=== PATIENT | female | born 1940 | race Caucasian/White ===

== ENCOUNTER → 2023-06-04 11:28 | Outpatient (REF) | payer OTHER, SELFPAY | LOC: DHCBC/DCA 11:28 | PROVIDERS: ATTENDING PHYSICIAN Internal Medicine Cardiovascular Disease; FAMILY PHYSICIAN Family Medicine | DX: I49.1 Atrial premature depolarization (principal); M79.602 Pain in left arm | CPT/HCPCS: 78452; 93017; A9500; J2785 ==

== ENCOUNTER → 2023-09-28 11:34 | Outpatient (REF) | payer OTHER, SELFPAY | LOC: RAD 11:34 | PROVIDERS: ATTENDING PHYSICIAN Family Medicine | DX: R91.1 Solitary pulmonary nodule (principal) | CPT/HCPCS: 71250 ==

== ENCOUNTER 2023-11-27 21:16 | Inpatient (IN) | payer OTHER, SELFPAY ==
[2023-11-27 15:42] VITALS: BP 168/86
--- NOTE | 2023-11-27 15:46 | ED.GENMED ---
ED Provider Triage
<Rosa Valderrama PA-C - Last Filed: 11/27/23 15:48>
-
Patient seen by provider in Triage?: Seen in Triage
Attestation: A medical screening examination has been initiated by a qualified medical provider. Based on the assessment performed at this time, it has been determined that an emergent medical condition may exist and the patient has been informed
that further medical evaluation and possible additional diagnostic testing may be needed.
HPI: 82yoF here with LLQ pain x 2 days. +Nausea, 1 episode of vomiting. Hx of kidney stones and this feels the same. Has underwent lithotripsy in the past. Follows with Dr. Nuñez.
GENERAL: Alert , in no apparent distress
EYE: No visual abnormalities.
NECK: Trachea midline
ENT: No visible abnormalities.
LUNGS: No acute respiratory distress
NEUROLOGICAL: Alert and oriented
SKIN: Skin intact. No visible changes.
MUSCULOSKELETAL: Moving extremities normally
PSYCH: Normal and appropriate interaction.
This is a medical evaluation conducted in person to initiate diagnostic evaluation and provide initial therapeutics. Please see further documentation by the treating clinician.
CBC, CMP, UA, and CT abdomen ordered. Zofran ODT for nausea.
History of Present Illness
<Rosa Valderrama PA-C - Last Filed: 11/27/23 15:48>
General
Chief Complaint: Flank Pain
Time Seen by Provider: 11/27/23 19:40
<Mariel Davila MD - Last Filed: 11/27/23 20:21>
History of Present Illness
History of Present Illness:
Patient is a 82-year-old woman with history of recurrent kidney stones and UTIs. Has had multiple lithotripsy, hypertension, hyperlipidemia presenting to the emergency department with left-sided flank pain that radiates to her groin. Has been
ongoing for 3 days. Seem similar to prior kidney stones. Has been having nausea. Is also generally felt unwell and weak. No vomiting. No fevers. No numbness tingling or weakness. No back pain
Phy Exam
<Mariel Davila MD - Last Filed: 11/27/23 20:21>
Physical Exam
Physical Exam:
GENERAL: in no acute distress
HEENT: normocephalic, extraocular movements intact, moist oral mucosa
NECK: normal inspection
RESPIRATORY: no respiratory distress, clear to auscultation bilaterally
CARDIOVASCULAR: regular rate and rhythm
ABDOMEN/: soft, non-distended, non-tender to palpation, no rebound or guarding
EXTREMITIES: non-tender, no edema/swelling
NEUROLOGIC: awake and alert, moves all extremities
SKIN: warm
Course
<Rosa Valderrama PA-C - Last Filed: 11/27/23 15:48>
Orders/Labs/Results
Orders:
Orders
11/27/23 15:47
Ondansetron Orally Disint [Zofran Odt (Orally Disintegrating)] 4 mg .ROUTE .STK-MED ONE
11/27/23 15:48
CT Abd/pel Without Iv Or Oral Urgent
Comment:
Reason For Exam: LLQ pain, hx of kidney stones
11/27/23 15:49
Ondansetron Orally Disint [Zofran Odt (Orally Disintegrating)] 4 mg PO NOW STA
11/27/23 15:51
Complete Blood Count/With Diff Urgent
Comprehensive Metabolic Panel Urgent
Lipase Urgent
11/27/23 15:55
Urinalysis Reflex To Culture Urgent
Date Specimen was Collected: 11/27/23
Time Specimen was Collected: 15:45
Urine Microscopic Reflex Cult Urgent
Urine Culture Urgent
MARIAH Source: U
Specimen Description:
Date Specimen was Collected: 11/27/23
Time Specimen was Collected: 15:45
11/27/23 20:16
Blood Culture Urgent
MARIAH Source: Blood/Venous
Specimen Description:
Cefepime HCl [Maxipime] 2,000 mg IV NOW STA
Abnormal Lab Results
11/27/23 11/27/23
15:51 15:55
WBC 22.2 H 10^3/uL
(4.8-10.8)
MPV 11.8 H fL
(7.4-10.4)
Abs Immat Gran (auto) 0.1 H 10^3/uL
(0-0.05)
Absolute Neuts (auto) 18.4 H 10^3/uL
(1.4-6.5)
Absolute Monos (auto) 1.6 H 10^3/uL
(0.1-0.6)
Immature Gran % 0.6 H %
(0-0.5)
Neutrophils % 83.3 H %
(42.2-75.2)
Lymphocytes % 8.6 L %
(20.5-51.1)
BUN 20 H mg/dl
(7-17)
Glucose 198 H mg/dl
(70-99)
Lipase 313 H U/L
(23-300)
Ur Occult Blood Reflex 3+ A
(Negative)
Urine Nitrite (Reflex) Positive A
(Negative)
Leukocyte Esterase Rfl 2+ A
(Negative)
Urine RBC 26-30 A /HPF
(0-2)
Urine WBC (Reflex) 70-80 A /HPF
(0-5)
Urine Bacteria (Reflex) Many A
(Negative)
Urine Albumin (Reflex) 2+ A
(Neg - Trace)
11/27/23 15:51
11/27/23 15:51
Vital Signs
Initial and Last Documented VS:
Initial Vital Signs
Temp Pulse Resp BP Pulse Ox
98.3 F 106 18 168/86 95
11/27/23 15:42 10/22/24 15:42 11/27/23 15:42 11/27/23 15:42 11/27/23 15:42
Last Documented Vital Signs
Temp Pulse Resp BP Pulse Ox
98.3 F 80 18 140/82 98
11/27/23 15:42 11/27/23 19:23 11/27/23 19:23 11/27/23 19:23 11/27/23 19:23
<Mariel Davila MD - Last Filed: 11/27/23 20:21>
Orders/Labs/Results
Orders:
Orders
11/27/23 15:47
Ondansetron Orally Disint [Zofran Odt (Orally Disintegrating)] 4 mg .ROUTE .STK-MED ONE
11/27/23 15:48
CT Abd/pel Without Iv Or Oral Urgent
Comment:
Reason For Exam: LLQ pain, hx of kidney stones
11/27/23 15:49
Ondansetron Orally Disint [Zofran Odt (Orally Disintegrating)] 4 mg PO NOW STA
11/27/23 15:51
Complete Blood Count/With Diff Urgent
Comprehensive Metabolic Panel Urgent
Lipase Urgent
11/27/23 15:55
Urinalysis Reflex To Culture Urgent
Date Specimen was Collected: 11/27/23
Time Specimen was Collected: 15:45
Urine Microscopic Reflex Cult Urgent
Urine Culture Urgent
MARIAH Source: U
Specimen Description:
Date Specimen was Collected: 11/27/23
Time Specimen was Collected: 15:45
11/27/23 20:16
Blood Culture Urgent
MARIAH Source: Blood/Venous
Specimen Description:
Cefepime HCl [Maxipime] 2,000 mg IV NOW STA
Abnormal Lab Results
11/27/23 11/27/23
15:51 15:55
WBC 22.2 H 10^3/uL
(4.8-10.8)
MPV 11.8 H fL
(7.4-10.4)
Abs Immat Gran (auto) 0.1 H 10^3/uL
(0-0.05)
Absolute Neuts (auto) 18.4 H 10^3/uL
(1.4-6.5)
Absolute Monos (auto) 1.6 H 10^3/uL
(0.1-0.6)
Immature Gran % 0.6 H %
(0-0.5)
Neutrophils % 83.3 H %
(42.2-75.2)
Lymphocytes % 8.6 L %
(20.5-51.1)
BUN 20 H mg/dl
(7-17)
Glucose 198 H mg/dl
(70-99)
Lipase 313 H U/L
(23-300)
Ur Occult Blood Reflex 3+ A
(Negative)
Urine Nitrite (Reflex) Positive A
(Negative)
Leukocyte Esterase Rfl 2+ A
(Negative)
Urine RBC 26-30 A /HPF
(0-2)
Urine WBC (Reflex) 70-80 A /HPF
(0-5)
Urine Bacteria (Reflex) Many A
(Negative)
Urine Albumin (Reflex) 2+ A
(Neg - Trace)
11/27/23 15:51
11/27/23 15:51
Vital Signs
Initial and Last Documented VS:
Initial Vital Signs
Temp Pulse Resp BP Pulse Ox
98.3 F 106 18 168/86 95
11/27/23 15:42 11/27/23 15:42 11/27/23 15:42 11/27/23 15:42 11/27/23 15:42
Last Documented Vital Signs
Temp Pulse Resp BP Pulse Ox
98.3 F 80 18 140/82 98
11/27/23 15:42 11/27/23 19:23 11/27/23 19:23 11/27/23 19:23 11/27/23 19:23
<Mariel Davila MD - Last Filed: 11/27/23 20:21>
MDM/Problems Addressed
Differential Diagnosis Includes:
82-year-old woman with history of kidney stones with multiple lithotripsies presenting to the emergency department with left-sided flank pain. Patient states that when she first arrived she was having excruciating pain with nausea however since she
has been here she feels much better. Likely kidney stone versus UTI or metabolic derangement. Blood work obtained prior to elevation does show leukocytosis. Urine does appear infected. CT scan does show a passed kidney stone in the bladder
though she does have residual left-sided hydroureteronephrosis. After shared decision making we will admit patient for IV antibiotics given the age, leukocytosis and history. Will order IV cefepime as well as blood cultures. Discussed with
hospitalist who accepted patient to their service.
<Mariel Davila MD - Last Filed: 11/27/23 20:21>
*Critical Care Note
Total Time (30-74mins, 75-104mins- exclusive of procedures): Not Applicable
ED Attending Note
<Rosa Valderrama PA-C - Last Filed: 11/27/23 15:48>
-
Portions of this chart may have been created with voice recognition software.� Occasional wrong word or��sound alike� substitutions may have occurred due to the inherent limitations of voice recognition software.
Discharge Plan
Departure
Patient Disposition: Admit
Date of Disposition: 11/27/23
Time of Disposition: 20:18
Presentation/result/management discussed w/ accepting MD/DO: Hospitalist
Discharge Problem:
Acute UTI
Prescriptions:
No Action
atorvastatin 10 mg Tablet
10 mg PO DAILY
metoprolol succinate 50 mg Tablet Extended Release 24 Hr
50 mg PO QPM
amlodipine 5 mg Tablet
5 mg PO DAILY
sertraline 50 mg Tablet
50 mg PO DAILY
eszopiclone 3 mg Tablet
3 mg PO HS
cholecalciferol (vitamin D3) [Vitamin D3] 125 mcg (5,000 unit) Tablet
125 mcg PO DAILY
Tylenol
1,000 mg PO DAILYPRN PRN (Reason: pain)
aspirin
81 mg PO DAILY
cefuroxime axetil 500 mg Tablet
500 mg PO Q12H
oxybutynin chloride 5 mg Tablet
5 mg PO TID
Referrals:
NONE,* [Family Provider] -
Discharge Date and Time
Print Language: AZERI
[2023-11-27] MEDS: ZOFRAN ODT (ORALLY DISINTEGRATING) 4 MG PO (15:49)
[2023-11-27 16:04] LABS: % Basophils 0.2 % (0-2); % Eosinophils 0.3 % (0-6); % Immature Granulocytes 0.6 % (0-0.5); % Lymphocytes 8.6 % (20.5-51.1); % Neutrophils 83.3 % (42.2-75.2); Absolute Basophils 0.1 10^3/uL (0-0.2); Absolute Eosinophils 0.1 10^3/uL (0-0.7); Absolute Immature Granulocytes 0.1 10^3/uL (0-0.05); Absolute Lymphocytes 1.9 10^3/uL (1.2-3.4); Absolute Monocytes 1.6 10^3/uL (0.1-0.6); Absolute Neutrophils 18.4 10^3/uL (1.4-6.5); Hematocrit 41.5 % (37.0-47.0); Hemoglobin 13.7 g/dL (12.0-16.0); Mean Corpuscular Hgb 28.6 pg (27.0-31.0); Mean Corpuscular Volume 86.6 fL (81.0-99.0); Mean Platelet Volume 11.8 fL (7.4-10.4); Nucleated Red Blood Cells % 0 %; Platelet Count 206 10^3/uL (130-400); Red Blood Cell Count 4.79 10^6/uL (4.20-5.40); Red Cell Dist. Width 12.5 % (11.5-14.5); White Blood Cell Count 22.2 10^3/uL (4.8-10.8)
[2023-11-27 16:18] LABS: ALT (SGPT) 20 U/L (0-35); AST (SGOT) 24 U/L (14-36); Albumin 4.8 g/dl (3.5-5.0); Alkaline Phosphatase 102 U/L (38-126); Blood Urea Nitrogen 20 mg/dl (7-17); Calcium 9.8 mg/dl (8.4-10.2); Carbon Dioxide 26 mmol/L (22-30); Chloride 101 mmol/L (98-107); Glucose 198 mg/dl (70-99); Lipase 313 U/L (23-300); Sodium 139 mmol/L (135-145); Total Bilirubin 0.8 mg/dl (0.2-1.3); Total Protein 7.3 g/dl (6.3-8.2); eGFR > 60.00
[2023-11-27 16:24] LABS: Urine Albumin 2+ (Neg - Trace); Urine Bilirubin Negative (Negative); Urine Character Clear (Clear); Urine Color Yellow; Urine Glucose Negative (Negative); Urine Ketone Negative (Negative); Urine Leukocyte 2+ (Negative); Urine Nitrite Positive (Negative); Urine Occult Blood 3+ (Negative); Urine Specific Gravity 1.015 (<1.030); Urine Urobilinogen Negative (Neg - 1+)
[2023-11-27 16:40] LABS: Urine Bacteria Many (Negative); Urine White Cell 70-80 /HPF (0-5)
[2023-11-27 16:41] LABS: Urine Red Blood Cell 26-30 /HPF (0-2)
[2023-11-27 19:23] VITALS: BP 140/82
[2023-11-27 20:24] VITALS: BP 150/65
[2023-11-27 20:26] VITALS: BMI 32.7
[2023-11-27] MEDS: MAXIPIME 2000 MG IV (20:31)
--- NOTE | 2023-11-27 21:09 | HPS.HSE ---
Family Physician
-
Family Physician: Qian Sutton
Chief Complaint
-
Flank Pain
History of Present Illness
Patient is an 82y F with PMH significant for hypertension, PACs and nephrolithiasis who presents to ED complaining of flank pain. Patient states that she developed L flank pain about 2 days ago. Her symptoms have progressed since that time and
were severe today. Patient describes nausea, subjective fevers and chills at home today. She has had multiple kidney stone in the past - requiring 5 prior lithotripsy procedures.
Patient notes that her current symptoms are similar to those prior episodes. She presented to the ED for further evaluation and treatment.
Medical History
Past Medical History
Past Medical History: Reports Other
Additional Past Medical History:
Hypertension
PACs
Dyslipidemia
Anxiety / Depression / Insomnia
Nephrolithiasis
Obesity
Past Surgical History: Reports Other
Additional Past Surgical History:
Lithotripsy x 5
Cholecystectomy
Social History
Tobacco: Former Smoker (Quit smoking several years ago.)
Alcohol: Occasional
Drug: None
Family History
Family History: Not pertinent
Allergies / Home Medications
Allergies reflects when Allergies were last updated in [facility].
Home Medications with original date entered in [facility]
Allergy/Medication List:
Allergies
Allergy/AdvReac Type Severity Reaction Status Date / Time
No Known Allergies Allergy Verified 11/27/23 15:44
Home Medications
amlodipine 5 mg tablet 5 mg PO DAILY 02/01/22
eszopiclone 3 mg tablet 3 mg PO HS 02/01/22
metoprolol succinate 50 mg tablet,extended release 24 hr 50 mg PO HS 02/01/22
sertraline 50 mg tablet 50 mg PO DAILY 02/01/22
aspirin 81 mg chewable tablet 81 mg PO DAILY 11/27/23
atorvastatin 20 mg tablet 20 mg PO DAILY 11/27/23
cholecalciferol (vitamin D3) 50 mcg (2,000 unit) tablet (Vitamin D3) 100 mcg PO DAILY 11/27/23
ibuprofen 200 mg tablet 400 mg PO Q8HPRN PRN mild pain 11/27/23
Review of Systems
-
History Source: Patient
A 12 point ROS was completed and negative except as noted: Yes
Constitutional: Reports Fever, Fatigue and Chills
EENT: Denies Sore Throat
Respiratory: Denies Cough or Trouble Breathing
Cardiac: Denies Chest Pain or Palpitations
Abdomen/GI: Reports Nausea and Vomiting; Denies Abdominal Pain or Diarrhea
: Reports Dysuria and Flank Pain; Denies Frequency or Incontinence
Neurological: Denies Dizzy or Headache
Psych: Denies Depression or Anxiety
Physical Exam
Vital Signs
Vital Signs
Temp Pulse Resp BP Pulse Ox
99.3 F 94 18 150/65 95
11/27/23 20:24 11/27/23 20:24 11/27/23 19:23 11/27/23 20:24 11/27/23 20:24
Physical Exam
General: Other (82y F in no acute distress.)
HEENT: Moist mucous membranes and PERRLA
Respiratory: Clear; No Wheezes, Rales or Rhonchi
Cardiac: S1/S2 and Regular Rhythm; No Murmur
GI: Soft, Non Tender, Non Distended and Normal Bowel Sounds
Genito-urinary: No costovertebral tender
Musculoskeletal: No Clubbing, No Cyanosis and No Edema
Neuro: AO x 3
Laboratory Results
-
11/27/23 15:51
11/27/23 15:51
Laboratory Results
Total Bilirubin 0.8 mg/dl (0.2-1.3) 11/27/23 15:51
AST 24 U/L (14-36) 11/27/23 15:51
ALT 20 U/L (0-35) 11/27/23 15:51
Alkaline Phosphatase 102 U/L (38-126) 11/27/23 15:51
Lipase 313 U/L (23-300) H 11/27/23 15:51
Impression/Plan
-
A/P: Patient is an 82y F with PMH significant for kidney stones, HTN and PACs who presents to ED complaining of L flank pain x 2 days.
UTI
- Admit for further evaluation and treatment.
- Significant leukocytosis, subjective fever and L hydronephrosis - likely due to recently passed stone.
- IVF abx with ceftriaxone pending culture data.
- Supportive care.
- Change to PO medications if patient remains afebrile / non-toxic.
Nephrolithiasis
- Left flank pain likely due to kidney stone.
- CT shows that this has passed into the bladder (4mm stone visualized).
- Follow for any recurrent symptoms.
- Follow-up with Urology as an outpatient.
Benign Hypertension
- Stable. Continue outpatient meds.
PACs.
- Check EKG now.
- Monitor on telemetry overnight.
- Continue metoprolol.
Anxiety / Depression
- Stable. Continue outpatient regimen.
DVT Prophylaxis: SCDs
Code Status: Full
[2023-11-27 21:39] LABS: Glucose - Point of Care 283 mg/dl (70-99)
[2023-11-27 22:30] VITALS: BP 127/68; BMI 31.3
[2023-11-27] MEDS: TOPROL XL 50 MG PO (23:05)
[2023-11-27] MEDS: AMBIEN 10 MG PO (23:05)
[2023-11-27] MEDS: NSS 1000 IV (23:05)
[2023-11-27] MEDS: ROCEPHIN 1000 MG IV (23:49)
[2023-11-27] MEDS: STERILE WATER FOR INJECTION 10 ML IV (23:50)
[2023-11-28 03:21] VITALS: BP 132/69
[2023-11-28 07:02] LABS: Hematocrit 38.7 % (37.0-47.0); Hemoglobin 12.8 g/dL (12.0-16.0); Mean Corp Hgb Conc. 33.1 g/dL (33.0-37.0); Mean Corpuscular Hgb 29.6 pg (27.0-31.0); Mean Corpuscular Volume 89.6 fL (81.0-99.0); Platelet Count 159 10^3/uL (130-400); Red Blood Cell Count 4.32 10^6/uL (4.20-5.40); Red Cell Dist. Width 12.6 % (11.5-14.5); White Blood Cell Count 18.1 10^3/uL (4.8-10.8)
[2023-11-28 07:15] LABS: Blood Urea Nitrogen 16 mg/dl (7-17); Carbon Dioxide 27 mmol/L (22-30); Chloride 103 mmol/L (98-107); Estimated Creatinine Clearance 62 ml/min; Glucose 172 mg/dl (70-99); Sodium 140 mmol/L (135-145); eGFR > 60.00
[2023-11-28 07:17] VITALS: BP 147/69
--- NOTE | 2023-11-28 08:24 | W.PN.HOSP.TC ---
Today's Communication/Plan
-
Continue IV Rocephin, follow-up on cultures
Assessment / Plan
Assessment / Plan
82y F with PMH significant for kidney stones, HTN and PACs who presents to ED complaining of L flank pain x 2 days.
UTI
- Admit for further evaluation and treatment.
- Significant leukocytosis, subjective fever and L hydronephrosis - likely due to recently passed stone.
- Continue IV Rocephin, follow-up on cultures
Nephrolithiasis
- Left flank pain likely due to kidney stone.
- CT shows that this has passed into the bladder (4mm stone visualized).
- Follow for any recurrent symptoms.
- Follow-up with Urology as an outpatient.
Benign Hypertension
- Stable. Continue outpatient meds.
PACs.
- Continue metoprolol.
Anxiety / Depression
- Stable. Continue outpatient regimen.
DVT Prophylaxis: SCDs
Code Status: Full
Updated family at bedside 11/27
Total time spent to see the patient on the floor, examine the patient, review data and lab results, discuss treatment plan with patient, nursing staff around 38 minutes.
Physical Exam
General: No acute distress
HEENT: Normocephalic, Atraumatic, EOMI, MMM
Respiratory: Clear to Auscultation bilaterally
Cardiac: Normal S1/S2, Regular Rate and Rhythm
GI: Soft, Nontender, Nondistended, Normal Bowel Sounds
Extremities: No Clubbing, Cyanosis, or Edema
Neuro: Nonfocal/Grossly Intact
Psych: Calm, Cooperative
Derm: No Visible lesions
Anticipated Discharge: Within 24 hours
Subjective/Interval History
-
Date of Service: November 28, 2023
Patient's left-sided flank pain has resolved. No dysuria, no nausea, no vomiting. No fever.
Objective Data
-
Labs:
Laboratory Results
11/28/23
06:13
WBC 18.1 H
Hgb 12.8
Hct 38.7
Plt Count 159 D
Sodium 140
Potassium 4.0
Chloride 103
Carbon Dioxide 27
BUN 16
Creatinine 0.7
Glucose 172 H
Calcium 9.0
Vital Signs:
Vital Signs
Temp Pulse Resp BP Pulse Ox
98.4 F 90 18 147/69 95
11/28/23 07:17 11/28/23 07:17 11/28/23 07:17 11/28/23 07:17 11/28/23 07:17
I&O
11/27/23 11/28/23 11/29/23
06:59 06:59 06:59
Intake Total 480 / 480
Balance 480 / 480
[2023-11-28] MEDS: LOW STRENGTH ASPIRIN 81 MG PO (08:40)
[2023-11-28] MEDS: LIPITOR 20 MG PO (08:40)
[2023-11-28] MEDS: NORVASC 5 MG PO (08:40)
[2023-11-28] MEDS: ZOLOFT 50 MG PO (08:40)
[2023-11-28] MEDS: NSS 1000 IV ×2 (08:42→19:52)
[2023-11-28 11:05] VITALS: BP 135/57
[2023-11-28 11:28] LABS: Glycohemoglobin (HgbA1c) 6.6 % (4.0-5.6)
[2023-11-28 15:08] VITALS: BP 140/69
[2023-11-28 19:55] VITALS: BP 152/64
[2023-11-28] MEDS: TOPROL XL 50 MG PO (21:09)
[2023-11-28] MEDS: AMBIEN 10 MG PO (22:05)
[2023-11-28 23:30] VITALS: BP 143/67
[2023-11-28] MEDS: TYLENOL 650 MG PO (23:30)
[2023-11-28] MEDS: ROCEPHIN 1000 MG IV (23:31)
[2023-11-28] MEDS: STERILE WATER FOR INJECTION 10 ML IV (23:31)
[2023-11-29] MEDS: NSS 1000 IV (03:50)
[2023-11-29 03:54] VITALS: BP 134/68
[2023-11-29 07:14] LABS: Hematocrit 34.7 % (37.0-47.0); Hemoglobin 11.4 g/dL (12.0-16.0); Mean Corp Hgb Conc. 32.9 g/dL (33.0-37.0); Mean Corpuscular Volume 88.3 fL (81.0-99.0); Platelet Count 148 10^3/uL (130-400); Red Blood Cell Count 3.93 10^6/uL (4.20-5.40); Red Cell Dist. Width 12.7 % (11.5-14.5); White Blood Cell Count 12.7 10^3/uL (4.8-10.8)
--- NOTE | 2023-11-29 07:33 | W.PN.HOSP.TC ---
Today's Communication/Plan
-
Discharge today
Assessment / Plan
Assessment / Plan
82y F with PMH significant for kidney stones, HTN and PACs who presents to ED complaining of L flank pain x 2 days.
UTI
- Admit for further evaluation and treatment.
- Significant leukocytosis, subjective fever and L hydronephrosis - likely due to recently passed stone.
- Urine cultures growing pansensitive E. coli
- Currently on Rocephin for 2 days, will discharge on Ceftin 500 mg twice a day to complete a 7-day course
- Follow-up with PCP in 1 week
Nephrolithiasis
- Left flank pain likely due to kidney stone.
- CT shows that this has passed into the bladder (4mm stone visualized).
- Follow for any recurrent symptoms.
- Follow-up with Urology as an outpatient.
Benign Hypertension
- Stable. Continue outpatient meds.
PACs.
- Continue metoprolol.
Anxiety / Depression
- Stable. Continue outpatient regimen.
DVT Prophylaxis: SCDs
Code Status: Full
Updated family at bedside 11/27
Physical Exam
General: No acute distress
HEENT: Normocephalic, Atraumatic, EOMI, MMM
Respiratory: Clear to Auscultation bilaterally
Cardiac: Normal S1/S2, Regular Rate and Rhythm
GI: Soft, Nontender, Nondistended, Normal Bowel Sounds
Extremities: No Clubbing, Cyanosis, or Edema
Neuro: Nonfocal/Grossly Intact
Psych: Calm, Cooperative
Derm: No Visible lesions
Anticipated Discharge: Today
Subjective/Interval History
-
Date of Service: November 29, 2023
No recurrence of flank pain, lower back pain, or suprapubic pain. No fever, no vomiting. Patient feels well, and is eager for discharge.
Objective Data
-
Labs:
Laboratory Results
11/29/23
06:24
WBC 12.7 H
Hgb 11.4 L
Hct 34.7 L
Plt Count 148
Vital Signs:
Vital Signs
Temp Pulse Resp BP Pulse Ox
98.3 F 85 18 134/68 92
11/29/23 03:54 11/29/23 03:54 11/29/23 03:54 11/29/23 03:54 11/29/23 03:54
I&O
11/28/23 11/29/23 11/30/23
06:59 06:59 06:59
Intake Total 480 / 480
Balance 480 / 480
[2023-11-29] MEDS: LIPITOR 20 MG PO (08:01)
[2023-11-29] MEDS: LOW STRENGTH ASPIRIN 81 MG PO (08:01)
[2023-11-29] MEDS: ZOLOFT 50 MG PO (08:01)
[2023-11-29] MEDS: NORVASC 5 MG PO (08:01)
--- NOTE | 2023-11-29 12:31 | PTOTSP ---
Patient demonstrates functional independence with mobility and good insight into safety. Do not anticipate further skilled therapy needs and patient verbalized no concerns at her discharge.
Will discharge patient at this time. If needs change, please re-consult.
[2023-11-29] MEDS: CEFTIN 500 MG PO (13:06)
--- NOTE | 2023-11-29 13:33 | PTCARENOTE ---
patient denies complaint, tolerating diet, independent in room and hallway, ambulating frequently, vss, will continue to monitor.
[2023-11-29 14:19] VITALS: BP 152/65
--- NOTE | 2023-11-29 17:30 | W.DCSUMMARY ---
Discharge Summary
Discharge Data
Date of Admission: 11/27/23
Date of Discharge: 11/29/23
-
Pending Results: No
Hospital Course
Discharge diagnosis:
Acute urinary tract infection
Nephrolithiasis
Benign essential hypertension
Premature atrial contractions
Anxiety/depression
CT abd/pelvis:
There is a 4 mm stone within the posterior aspect of the urinary bladder. There is associated mild left-sided hydroureteronephrosis and left perinephric stranding, likely secondary to recently passed left-sided ureteral stone into the urinary
bladder.
There are additional nonobstructing stones bilaterally measuring up to 6 mm on the left and 2 mm on the right.
Hospital course:
82-year-old female with a past medical history of nephrolithiasis, hypertension, PACs, and anxiety/depression was admitted for left flank pain, nephrolithiasis, and acute urinary tract infection. Patient had a CAT scan which showed that the stone
has passed into the bladder. Her left flank pain resolved.
She was treated with IV Rocephin for an acute urinary tract infection. Urine cultures grew out pansensitive E. coli. She will be discharged on Ceftin to complete a 7-day course. She is medically stable for discharge. She needs to follow-up with
her primary care doctor in 1 week, neurology in the office as needed.
Disposition: Home self-care
Discharge planning: Required 37 minutes
Discharge Plan
-
Patient Disposition: Home (Routine Discharge)
Discharge Diagnosis/Procedures: Acute urinary tract infection, left-sided nephrolithiasis
Condition: Good
Diet: Low Fat and Low Cholesterol
Activity: As tolerated
Driving Restrictions: As prior to admission
Activity Restrictions/Additional Instructions:
Please follow-up with your primary care doctor in 1 week for hospital follow-up appointment.
Please follow-up with urologist as needed.
Referrals:
Qian Sutton DO [Family Provider] - in one week
Prescriptions:
New
cefuroxime axetil 500 mg Tablet
500 mg PO BID 5 Days Qty: 10 0RF
Continued
metoprolol succinate 50 mg Tablet Extended Release 24 Hr
50 mg PO HS
amlodipine 5 mg Tablet
5 mg PO DAILY
sertraline 50 mg Tablet
50 mg PO DAILY
eszopiclone 3 mg Tablet
3 mg PO HS
atorvastatin 20 mg Tablet
20 mg PO DAILY
ibuprofen 200 mg Tablet
400 mg PO Q8HPRN PRN (Reason: mild pain)
aspirin 81 mg Tablet,Chewable
81 mg PO DAILY
cholecalciferol (vitamin D3) [Vitamin D3] 50 mcg (2,000 unit) Tablet
100 mcg PO DAILY
Discharge Orders:
Discharge Patient (As Directed); Ordered 11/29/23
Ordered By: Sang Stearns
Discharge Date and Time
Discharge Date/Time: 11/29/23 14:50
Print Language: TURKISH
== END 2023-11-29 14:50 | disposition home or self-care (01) | DRG 690 ==
LOC: 3 WEST ACU 21:16
PROVIDERS: Emergency Medicine; ADMITTING PHYSICIAN Hospitalist; ATTENDING PHYSICIAN Family Medicine; EMERGENCY PHYSICIAN Student in an Organized Health Care Education/Training Program; FAMILY PHYSICIAN Family Medicine
DX: N13.6 Pyonephrosis (principal); E66.9 Obesity, unspecified; F32.A Depression, unspecified; I10 Essential (primary) hypertension; B96.20 Unspecified Escherichia coli [E. coli] as the cause of diseases classified elsewhere; N20.0 Calculus of kidney; E78.5 Hyperlipidemia, unspecified; F41.9 Anxiety disorder, unspecified; G47.00 Insomnia, unspecified; I49.1 Atrial premature depolarization; Z79.82 Long term (current) use of aspirin; Z79.899 Other long term (current) drug therapy; Z87.440 Personal history of urinary (tract) infections; Z87.442 Personal history of urinary calculi; Z87.891 Personal history of nicotine dependence
CPT/HCPCS: 74176; 80048; 80053; 81003; 81015; 82962; 83036; 83690; 85025; 85027; 87040; 87077; 87086; 87186; 93005; 97162; 99285

== ENCOUNTER → 2024-01-19 10:22 | Outpatient (REF) | payer OTHER, SELFPAY | LOC: RAD 10:22 | PROVIDERS: ATTENDING PHYSICIAN Family Medicine | DX: I65.22 Occlusion and stenosis of left carotid artery (principal) | CPT/HCPCS: 93880 ==

== ENCOUNTER → 2024-04-21 09:42 | Outpatient (REF) | payer OTHER, SELFPAY | LOC: HWRAD 09:42 | PROVIDERS: ATTENDING PHYSICIAN Family Medicine | DX: R74.8 Abnormal levels of other serum enzymes (principal) | CPT/HCPCS: 76700 ==

== ENCOUNTER → 2024-05-27 08:34 | Outpatient (REF) | payer OTHER, SELFPAY | LOC: MRI 08:34 | PROVIDERS: ATTENDING PHYSICIAN Family Medicine | DX: K76.0 Fatty (change of) liver, not elsewhere classified (principal); R79.89 Other specified abnormal findings of blood chemistry | CPT/HCPCS: 74181; 76391 ==

== ENCOUNTER → 2024-11-26 11:18 | Outpatient (REF) | payer OTHER, SELFPAY | LOC: RAD 11:18 | PROVIDERS: ATTENDING PHYSICIAN Urology; FAMILY PHYSICIAN Family Medicine | DX: N20.0 Calculus of kidney (principal) | CPT/HCPCS: 76775 ==

== ENCOUNTER → 2025-01-26 14:37 | Outpatient (REF) | payer OTHER, SELFPAY | LOC: RAD 14:37 | PROVIDERS: ATTENDING PHYSICIAN Family Medicine | DX: N95.1 Menopausal and female climacteric states (principal) | CPT/HCPCS: 77080 ==